=== PATIENT | female | born 1960 | race Caucasian/White ===

== ENCOUNTER → 2019-02-24 | Emergency (ER) | payer OTHER ==
[~2019-02-24] VITALS: Ht 162.6 cm; Wt 63.6 kg
[~2019-02-24] MED LIST: ALB0.5UD IH; ALBU6.7H9 INH; HYDR-4353 PO; IBUP-1986 PO; NO HOME MEDS
[2019-02-24 06:39] VITALS: BP 151/103
== END | disposition home or self-care (01) ==
LOC: ER 06:34
DX: M79.672 Pain in left foot (principal); J45.909 Unspecified asthma, uncomplicated; F17.200 Nicotine dependence, unspecified, uncomplicated; Z90.710 Acquired absence of both cervix and uterus; Z91.030 Bee allergy status; Z79.899 Other long term (current) drug therapy; W22.8XXA Striking against or struck by other objects, initial encounter; Y93.89 Activity, other specified; Y92.89 Other specified places as the place of occurrence of the external cause; Y99.8 Other external cause status
CPT/HCPCS: 73630; 99283

== ENCOUNTER 2020-09-01 03:01 | Emergency (ER) | payer BC, OTHER ==
[~2020-09-01] VITALS: Ht 162.6 cm; Wt 73.0 kg
[~2020-09-01 03:01] MED LIST changes: -HYDR-4353 PO
[2020-09-01 03:46] VITALS: BP 147/86
== END 2020-09-01 03:50 | disposition home or self-care (01) ==
LOC: EEVIPCON 03:02 → ER 03:02
DX: J18.9 Pneumonia, unspecified organism (principal); R53.83 Other fatigue; R53.81 Other malaise; R53.1 Weakness; Z90.710 Acquired absence of both cervix and uterus; Z91.030 Bee allergy status; Z79.899 Other long term (current) drug therapy
CPT/HCPCS: 99281

== ENCOUNTER 2020-10-22 13:37 | Outpatient (CLI) | payer BC | END 2020-10-22 23:59 | disposition home or self-care (01) | LOC: CARD DIAG 13:37 | PROVIDERS: ATTEND Nurse Practitioner Family | DX: I08.8 Other rheumatic multiple valve diseases (principal); R07.9 Chest pain, unspecified; R06.09 Other forms of dyspnea | CPT/HCPCS: 93306 ==

== ENCOUNTER 2022-10-05 06:32 | Emergency (ER) | payer BC ==
[~2022-10-05] VITALS: Ht 162.6 cm; Wt 77.6 kg
[~2022-10-05 06:32] MED LIST changes: +ALBU6.7H14 INH; -ALBU6.7H9 INH
[2022-10-05 06:35] VITALS: BP 137/83
--- NOTE | 2022-10-05 07:27 | NUR ---
Ice pack applied on patient's sore left foot area. Left foot was wrapped with dain wrap for compression as per Dr. Miller's instruction.
== END 2022-10-05 07:31 | disposition home or self-care (01) ==
LOC: ER 06:33
DX: S90.32XA Contusion of left foot, initial encounter (principal); J45.909 Unspecified asthma, uncomplicated; Z90.710 Acquired absence of both cervix and uterus; Z91.030 Bee allergy status; Z79.899 Other long term (current) drug therapy; W22.8XXA Striking against or struck by other objects, initial encounter; Y93.89 Activity, other specified; Y92.89 Other specified places as the place of occurrence of the external cause; Y99.8 Other external cause status
CPT/HCPCS: 73630; 99283; A6449

== ENCOUNTER 2023-07-04 05:26 | Emergency (ER) | payer BC ==
[~2023-07-04] VITALS: Ht 162.6 cm; Wt 74.5 kg
[2023-07-04 05:32] VITALS: BP 152/71; PULSE 88; RESP 17; TEMP 97.6; O2SAT 98
[2023-07-04 05:53] LABS: BILIRUBIN,URINE NEGATIVE (Neg); CLARITY,URINE CLEAR (Clear); COLOR,URINE YELLOW (Yellow); GLUCOSE, URINE NEGATIVE (Neg); KETONES,URINE NEGATIVE (Neg); LEUKOCYTE ESTERASE ,URINE NEGATIVE (Neg); NITRITES, URINE NEGATIVE (Neg); OCCULT BLOOD,URINE NEGATIVE (Neg); PROTEIN,URINE NEGATIVE (Neg); UROBILINOGEN,URINE 0.2 E.U/dL (0.2-1.0)
[2023-07-04 05:54] LABS: UA COLLECTION TYPE NON-SPECIFIED
== END 2023-07-04 08:45 | disposition left against medical advice (07) ==
LOC: ER 05:27
DX: N39.0 Urinary tract infection, site not specified (principal); Z53.21 Procedure and treatment not carried out due to patient leaving prior to being seen by health care provider
CPT/HCPCS: 81003; 99281

== ENCOUNTER → 2023-10-21 | Outpatient (CLI) | payer BC ==
[2023-10-21 01:25] LABS: BASOPHILS # (AUTO) 0.1 X10'3 (0-0.2); BASOPHILS % (AUTO) 0.6 % (0-1); EOSINOPHILS # (AUTO) 0.2 X10'3 (0-0.9); EOSINOPHILS % (AUTO) 2.1 % (0-6); HEMATOCRIT 40.9 % (35.0-45.0); HEMOGLOBIN 13.9 g/dl (12.0-16.0); LYMPHOCYTES # (AUTO) 2.8 X10'3 (1.1-4.8); LYMPHOCYTES % (AUTO) 30.4 % (21-51); MEAN CORPUSCULAR VOLUME 88.2 FL (78-98); MEAN PLATELET VOLUME 9.3 FL (7.4-10.4); MONOCYTES # (AUTO) 0.9 X10'3 (0-0.9); MONOCYTES % (AUTO) 9.3 % (2-12); NEUTROPHILS # (AUTO) 5.4 X10'3 (1.8-7.7); NEUTROPHILS % (AUTO) 57.6 % (42-75); PLATELET COUNT 235 X10'3 (140-440); RED BLOOD COUNT 4.64 X10'6 (4.20-5.60); RED CELL DISTRIBUTION WIDTH 13.7 % (11.5-14.5); WHITE BLOOD COUNT 9.4 X10'3 (4.5-11.0)
[2023-10-21 01:39] LABS: ALANINE AMINOTRANSFERASE 25 U/L (12-78); ALBUMIN 3.7 G/DL (3.4-5.0); ALBUMIN/GLOBULIN RATIO 1.1 (1.1-1.5); ALKALINE PHOSPHATASE 78 IU/L (46-116); ANION GAP 9 (8-16); ASPARTATE AMINO TRANSFERASE 17 U/L (10-37); BILIRUBIN,TOTAL 0.4 MG/DL (0.1-1.0); BLOOD UREA NITROGEN 17 MG/DL (7-18); BUN/CREATININE RATIO 22.4 (10.0-20.0); CALCIUM 8.9 MG/DL (8.5-10.1); CHLORIDE 105 MMOL/L (99-107); CHOL/HDL RATIO 4.8 (0.00-4.99); CHOLESTEROL 167 MG/DL (0-200); CREATININE 0.76 MG/DL (0.40-0.90); GLUCOSE 104 MG/DL (70-104); HDL CHOLESTEROL 35 MG/DL (35-60); LDL CHOLESTEROL 111 MG/DL (50-100); POTASSIUM 4.1 MMOL/L (3.5-5.1); SODIUM 141 MMOL/L (135-145); TOTAL CARBON DIOXIDE 27.5 MMOL/L (24-32); TOTAL PROTEIN 7.1 G/DL (6.4-8.2); TRIGLYCERIDES 317 MG/DL (20-135); eGFR 76 ML/MIN
== END | disposition home or self-care (01) ==
LOC: LAB 00:51
PROVIDERS: ATTEND Registered Nurse
DX: Z00.00 Encounter for general adult medical examination without abnormal findings (principal); Z12.11 Encounter for screening for malignant neoplasm of colon; Z12.39 Encounter for other screening for malignant neoplasm of breast; Z71.89 Other specified counseling; I10 Essential (primary) hypertension; R22.2 Localized swelling, mass and lump, trunk
CPT/HCPCS: 36415; 80053; 80061; 82306; 85025